=== PATIENT | female | born 1955 | race Caucasian/White ===

== ENCOUNTER → 2018-07-31 07:48 | Outpatient (CLI) | payer OTHER, SELFPAY ==
[2018-07-31 09:09] LABS: Add Manual Diff / Slide Review NO; Basophils Absolute Auto 0 /uL (0-100); Basophils Percent Auto 0.4 % (0-2); Eosinophils Absolute Auto 100 /uL (0-450); Eosinophils Percent Auto 1.7 % (2-4); Hematocrit 40.7 % (36-46); Hemoglobin 13.3 g/dL (12.0-16.0); Lymphocytes Absolute Auto 1400 /uL (1100-4500); Mean Corpuscular HGB Conc 32.7 % (30-36); Mean Corpuscular Hemoglobin 27.9 PG (26-34); Mean Corpuscular Volume 85.4 fL (80-100); Monocytes Absolute Auto 500 /uL (0-900); Monocytes Percent Auto 10.6 % (3-14); Neutrophils Absolute Auto 2500 /uL (1500-7000); Neutrophils Percent Auto 56.3 % (50-75); Platelet Count 213 X10^3/uL (150-400); Red Blood Cell Count 4.77 X10^6/uL (4.0-5.2); White Blood Cell Count 4.5 X10^3/uL (4.5-11.0)
[2018-07-31 09:20] LABS: Alanine Aminotransferase 33 IU/L (9-52); Albumin 4.1 g/dL (3.5-5.0); Albumin Globulin Ratio 1.6 (1.0-2.8); Alkaline Phosphatase 56 U/L (38-126); Aspartate Aminotransferase 22 IU/L (14-36); BUN Creatinine Ratio 22.5 (6-22); Bilirubin Total 0.3 mg/dL (0.2-1.3); Blood Urea Nitrogen 18 mg/dL (7-17); Calcium 9.1 mg/dL (8.4-10.2); Carbon Dioxide 28 mmol/L (22-32); Chloride 103 mmol/L (98-107); Cholesterol 177 mg/dL (140-199); Estimated Glomerular Filt Rate > 60.0 mL/min (>60); Globulin 2.5 g/dL (1.7-4.1); Glucose 93 mg/dL (80-110); HDL Cholesterol 65 mg/dL (40-60); HEMOLYSIS < 15 (0-50); LDL Cholesterol Calculated 95 mg/dL (<100); Potassium 4.6 mmol/L (3.4-5.1); Sodium 139 mmol/L (137-145); Total Protein 6.6 g/dL (6.3-8.2); Triglycerides 85 mg/dL (35-150)
[2018-07-31 09:53] LABS: Thyroid Stimulating Hormone 1.21 uIU/mL (0.47-4.68)
== END ==
PROVIDERS: PCP Student in an Organized Health Care Education/Training Program
DX: Z13.228 Encounter for screening for other metabolic disorders (principal); Z13.220 Encounter for screening for lipoid disorders; Z13.0 Encounter for screening for diseases of the blood and blood-forming organs and certain disorders involving the immune mechanism; Z13.29 Encounter for screening for other suspected endocrine disorder
CPT/HCPCS: 36415; 80053; 80061; 84443; 85025

== ENCOUNTER → 2018-08-21 12:04 | Outpatient (CLI) | payer OTHER, SELFPAY ==
--- NOTE | 2018-08-21 12:05 | DI.MG.S_ITS ---
BILATERAL DIGITAL SCREENING MAMMOGRAM 3D/2D WITH CAD: 08/21/2018 CLINICAL: Routine screening. Comparison is made to exams dated: 07/29/2017 mammogram, 07/10/2016 mammogram, and 06/21/2015 mammogram - [facility]. The tissue of both breasts is heterogeneously dense. This may lower the sensitivity of mammography. Current study was also evaluated with a Computer Aided Detection (CAD) system. There are benign calcifications in both breasts. No significant masses, calcifications, or other findings are seen in either breast. There has been no significant interval change. IMPRESSION: There is no mammographic evidence of malignancy. A 1 year screening mammogram is recommended. This exam was interpreted at Station ID: [id number]. NOTE: For mammograms, a report in lay terms will be sent to the patient. Approximately 15% of breast malignancies will not be visualized mammographically. In the management of a palpable breast mass, a negative mammogram must not discourage biopsy of a clinically suspicious lesion. Electronically Signed By: Garo black/zackary:08/23/2018 12:38:43 copy to: León Powell letter sent: Normal Exam ACR BI-RADS Category 2: Benign Finding(s) 3342F
== END ==
PROVIDERS: PCP Student in an Organized Health Care Education/Training Program
DX: Z12.31 Encounter for screening mammogram for malignant neoplasm of breast (principal)
CPT/HCPCS: 77063; 77067

== ENCOUNTER → 2019-11-07 15:11 | Outpatient (CLI) | payer OTHER, SELFPAY ==
--- NOTE | 2019-11-07 | DI.MG.S_ITS ---
BILATERAL DIGITAL SCREENING MAMMOGRAM 3D/2D WITH CAD: 11/07/2019 CLINICAL: Routine screening. Comparison is made to exams dated: 08/21/2018 mammogram, 07/29/2017 mammogram, 07/10/2016 mammogram, 06/21/2015 mammogram, and 06/20/2014 mammogram - [facility]. The tissue of both breasts is heterogeneously dense. This may lower the sensitivity of mammography. Current study was also evaluated with a Computer Aided Detection (CAD) system. There are grouped fine calcifications in the left breast at 9 o'clock posterior depth. These are more prominent. There maybe layering of this calcification on the MLO. No other significant masses, calcifications, or other findings are seen in either breast. IMPRESSION: INCOMPLETE: NEEDS ADDITIONAL IMAGING EVALUATION The grouped fine calcifications in the left breast are indeterminate. Additional views are recommended. This exam was interpreted at Station ID: [id number]. NOTE: For mammograms, a report in lay terms will be sent to the patient. Approximately 15% of breast malignancies will not be visualized mammographically. In the management of a palpable breast mass, a negative mammogram must not discourage biopsy of a clinically suspicious lesion. Electronically Signed By: Fabien Cleveland M.D. slc/:11/07/2019 16:47:41 letter sent: Additional Imaging Needed ACR BI-RADS Category 0: Incomplete 3340F
== END ==
PROVIDERS: PCP Family Medicine; Referring Provider Family Medicine; Visit Provider Family Medicine
DX: Z12.31 Encounter for screening mammogram for malignant neoplasm of breast (principal)
CPT/HCPCS: 77063; 77067

== ENCOUNTER → 2019-11-23 13:42 | Outpatient (CLI) | payer OTHER, SELFPAY ==
--- NOTE | 2019-11-23 13:43 | DI.MG.S_ITS ---
UNILATERAL LEFT DIGITAL DIAGNOSTIC MAMMOGRAM 3D/2D WITH ADDITIONAL VIEWS: 11/23/2019 CLINICAL: Additional evaluation requested from prior study. Comparison is made to exams dated: 11/07/2019 mammogram, 08/21/2018 mammogram, and 07/29/2017 mammogram - [facility]. The tissue of left breast is heterogeneously dense. This may lower the sensitivity of mammography. There are stable benign grouped fine calcifications in the left breast at 9 o'clock posterior depth. These appear unchanged from the 2018 mammogram. No other significant masses or calcifications are seen in the breast. IMPRESSION: There is no mammographic evidence of malignancy. A 1 year screening mammogram is recommended. This exam was interpreted at Station ID: [id number]. NOTE: For mammograms, a report in lay terms will be sent to the patient. Approximately 15% of breast malignancies will not be visualized mammographically. In the management of a palpable breast mass, a negative mammogram must not discourage biopsy of a clinically suspicious lesion. Electronically Signed By: Sweta trujillo/:11/23/2019 14:23:22 letter sent: Normal Exam ACR BI-RADS Category 2: Benign Finding(s) 3342F
== END ==
PROVIDERS: PCP Family Medicine; Referring Provider Family Medicine; Visit Provider Family Medicine
DX: R92.8 Other abnormal and inconclusive findings on diagnostic imaging of breast (principal); R92.1 Mammographic calcification found on diagnostic imaging of breast
CPT/HCPCS: 77065; G0279

== ENCOUNTER → 2020-09-25 06:59 | Outpatient (CLI) | payer OTHER, SELFPAY ==
[2020-09-25 08:12] LABS: Add Manual Diff / Slide Review NO; Basophils Absolute Auto 0 /uL (0-100); Basophils Percent Auto 0.6 % (0-2); Eosinophils Absolute Auto 200 /uL (0-450); Eosinophils Percent Auto 4.4 % (2-4); Hemoglobin 12.9 g/dL (12.0-16.0); Lymphocytes Absolute Auto 1600 /uL (1100-4500); Lymphocytes Percent Auto 35.8 % (25-40); Mean Corpuscular HGB Conc 33.1 % (30-36); Mean Corpuscular Hemoglobin 28.5 PG (26-34); Mean Corpuscular Volume 85.9 fL (80-100); Monocytes Absolute Auto 600 /uL (0-900); Monocytes Percent Auto 13.3 % (3-14); Neutrophils Absolute Auto 2100 /uL (1500-7000); Neutrophils Percent Auto 45.9 % (50-75); Platelet Count 212 X10^3/uL (150-400); Red Blood Cell Count 4.54 X10^6/uL (4.0-5.2); White Blood Cell Count 4.5 X10^3/uL (4.5-11.0)
[2020-09-25 08:30] LABS: Alanine Aminotransferase 22 IU/L (<35); Albumin 3.9 g/dL (3.5-5.0); Albumin Globulin Ratio 1.6 (1.0-2.8); Alkaline Phosphatase 58 U/L (38-126); Aspartate Aminotransferase 25 IU/L (14-36); Bilirubin Total 0.3 mg/dL (0.2-1.3); Blood Urea Nitrogen 20 mg/dL (7-17); Calcium 9.1 mg/dL (8.4-10.2); Carbon Dioxide 31 mmol/L (22-32); Chloride 102 mmol/L (98-107); Cholesterol 215 mg/dL (140-199); Estimated Glomerular Filt Rate > 60.0 mL/min (>60); Globulin 2.5 g/dL (1.7-4.1); Glucose 105 mg/dL (80-110); HDL Cholesterol 60 mg/dL (40-60); HEMOLYSIS < 15 (0-50); LDL Cholesterol Calculated 139 mg/dL (<100); Potassium 4.8 mmol/L (3.4-5.1); Sodium 138 mmol/L (137-145); Total Protein 6.4 g/dL (6.3-8.2); Triglycerides 81 mg/dL (35-150)
[2020-09-25 08:54] LABS: TSH w/ Reflex to FT4 2.26 uIU/mL (0.47-4.68)
== END ==
PROVIDERS: PCP Family Medicine; Referring Provider Family Medicine; Visit Provider Family Medicine
DX: E03.9 Hypothyroidism, unspecified (principal); M85.80 Other specified disorders of bone density and structure, unspecified site; N95.0 Postmenopausal bleeding
CPT/HCPCS: 36415; 80053; 80061; 84443; 85025

== ENCOUNTER → 2020-12-05 15:26 | Outpatient (CLI) | payer OTHER, SELFPAY ==
--- NOTE | 2020-12-05 15:27 | DI.MG.S_ITS ---
BILATERAL DIGITAL SCREENING MAMMOGRAM 3D/2D WITH CAD: 12/05/2020 CLINICAL: Routine screening. Comparison is made to exams dated: 11/23/2019 mammogram, 11/07/2019 mammogram, 08/21/2018 mammogram, and 07/29/2017 mammogram - [facility]. The tissue of both breasts is heterogeneously dense. This may lower the sensitivity of mammography. Current study was also evaluated with a Computer Aided Detection (CAD) system. No significant masses, calcifications, or other findings are seen in either breast. There has been no significant interval change. IMPRESSION: NEGATIVE There is no mammographic evidence of malignancy. A 1 year screening mammogram is recommended. This exam was interpreted at Station ID: [id number]. NOTE: For mammograms, a report in lay terms will be sent to the patient. Approximately 15% of breast malignancies will not be visualized mammographically. In the management of a palpable breast mass, a negative mammogram must not discourage biopsy of a clinically suspicious lesion. Electronically Signed By: Eris choi/zackary:12/05/2020 15:50:39 letter sent: Normal Exam ACR BI-RADS Category 1: Negative 3341F
== END ==
PROVIDERS: PCP Family Medicine; Referring Provider Obstetrics & Gynecology; Visit Provider Obstetrics & Gynecology
DX: Z12.31 Encounter for screening mammogram for malignant neoplasm of breast (principal)
CPT/HCPCS: 77063; 77067

== ENCOUNTER → 2021-01-23 06:58 | Outpatient (CLI) | payer OTHER, SELFPAY ==
[2021-01-23 08:40] LABS: BUN Creatinine Ratio 26.9 (6-22); Blood Urea Nitrogen 21 mg/dL (7-17); Calcium 9.3 mg/dL (8.4-10.2); Carbon Dioxide 28 mmol/L (22-32); Chloride 105 mmol/L (98-107); Cholesterol 228 mg/dL (140-199); Estimated Glomerular Filt Rate > 60.0 mL/min (>60); Glucose 100 mg/dL (80-110); HDL Cholesterol 62 mg/dL (40-60); HEMOLYSIS < 15 (0-50); LDL Cholesterol Calculated 151 mg/dL (<100); Potassium 4.4 mmol/L (3.4-5.1); Sodium 139 mmol/L (137-145); Triglycerides 74 mg/dL (35-150)
[2021-01-23 09:09] LABS: TSH w/ Reflex to FT4 0.47 uIU/mL (0.47-4.68)
== END ==
PROVIDERS: PCP Family Medicine; Referring Provider Family Medicine; Visit Provider Family Medicine
DX: E03.9 Hypothyroidism, unspecified (principal); E78.5 Hyperlipidemia, unspecified
CPT/HCPCS: 36415; 80048; 80061; 84443

== ENCOUNTER → 2021-03-08 07:41 | Outpatient (CLI) | payer OTHER, SELFPAY ==
[2021-03-08 08:34] LABS: Alanine Aminotransferase 26 IU/L (<35); Albumin 4.2 g/dL (3.5-5.0); Albumin Globulin Ratio 1.6 (1.0-2.8); Alkaline Phosphatase 61 U/L (38-126); Aspartate Aminotransferase 28 IU/L (14-36); BUN Creatinine Ratio 24.3 (6-22); Bilirubin Total 0.5 mg/dL (0.2-1.3); Blood Urea Nitrogen 17 mg/dL (7-17); Calcium 9.4 mg/dL (8.4-10.2); Carbon Dioxide 30 mmol/L (22-32); Chloride 104 mmol/L (98-107); Cholesterol 152 mg/dL (140-199); Estimated Glomerular Filt Rate > 60.0 mL/min (>60); Globulin 2.6 g/dL (1.7-4.1); Glucose 90 mg/dL (80-110); HDL Cholesterol 81 mg/dL (40-60); HEMOLYSIS < 15 (0-50); LDL Cholesterol Calculated 58 mg/dL (<100); Potassium 3.9 mmol/L (3.4-5.1); Sodium 141 mmol/L (137-145); Total Protein 6.8 g/dL (6.3-8.2); Triglycerides 64 mg/dL (35-150)
== END ==
PROVIDERS: PCP Family Medicine; Referring Provider Family Medicine; Visit Provider Family Medicine
DX: E78.00 Pure hypercholesterolemia, unspecified (principal)
CPT/HCPCS: 36415; 80053; 80061

== ENCOUNTER → 2021-05-14 12:40 | Outpatient (CLI) | payer OTHER, SELFPAY ==
[2021-05-14 14:08] LABS: TSH w/ Reflex to FT4 1.75 uIU/mL (0.47-4.68)
== END ==
PROVIDERS: PCP Family Medicine; Referring Provider Family Medicine; Visit Provider Family Medicine
DX: E03.9 Hypothyroidism, unspecified (principal)
CPT/HCPCS: 36415; 84443

== ENCOUNTER → 2021-12-10 12:54 | Outpatient (CLI) | payer OTHER, SELFPAY ==
--- NOTE | 2021-12-10 12:55 | DI.MG.S_ITS ---
BILATERAL DIGITAL SCREENING MAMMOGRAM 3D/2D WITH CAD: 12/10/2021 CLINICAL: Routine screening. Comparison is made to exams dated: 12/05/2020 mammogram, 11/07/2019 mammogram, 08/21/2018 mammogram, and 07/29/2017 mammogram - [facility]. The tissue of both breasts is heterogeneously dense. This may lower the sensitivity of mammography. Current study was also evaluated with a Computer Aided Detection (CAD) system. There are benign calcifications in both breasts. No significant masses, calcifications, or other findings are seen in either breast. There has been no significant interval change. IMPRESSION: BENIGN There is no mammographic evidence of malignancy. A 1 year screening mammogram is recommended. Based on the Tyrer Cuzick model (a risk assessment model) the patient's lifetime risk is 11.2% and her 10 year risk is 5.2%. According to the ACR, ACS, and NCCN guidelines, an annual breast MRI exam along with mammogram is recommended if the patient's lifetime risk is 20% or greater. This exam was interpreted at Station ID: [id number]. NOTE: For mammograms, a report in lay terms will be sent to the patient. Approximately 15% of breast malignancies will not be visualized mammographically. In the management of a palpable breast mass, a negative mammogram must not discourage biopsy of a clinically suspicious lesion. Electronically Signed By: Fabien lindquist/zackary:12/10/2021 17:42:55 letter sent: Normal Exam ACR BI-RADS Category 2: Benign Finding(s) 3342F
== END ==
PROVIDERS: Referring Provider Obstetrics & Gynecology; Visit Provider Obstetrics & Gynecology
DX: Z12.31 Encounter for screening mammogram for malignant neoplasm of breast (principal)
CPT/HCPCS: 77063; 77067

== ENCOUNTER → 2022-05-13 07:00 | Outpatient (CLI) | payer MEDICARE, OTHER, SELFPAY ==
[2022-05-13 08:05] LABS: Hematocrit 37.5 % (36-46); Hemoglobin 12.5 g/dL (12.0-16.0); Mean Corpuscular HGB Conc 33.4 % (30-36); Mean Corpuscular Hemoglobin 28.5 PG (26-34); Mean Corpuscular Volume 85.2 fL (80-100); Platelet Count 217 X10^3/uL (150-400); Red Cell Distribution Width 13.5 % (11.6-14.8); White Blood Cell Count 5.5 X10^3/uL (4.5-11.0)
[2022-05-13 08:40] LABS: Cholesterol 138 mg/dL (140-199); HDL Cholesterol 58 mg/dL (40-60); LDL Cholesterol Calculated 66 mg/dL (<100); Triglycerides 69 mg/dL (35-150)
[2022-05-13 08:53] LABS: Vitamin D 25 Hydroxy (D3) 54.3 ng/mL (30.0-100.0)
[2022-05-13 09:23] LABS: Thyroid Stimulating Hormone 1.67 uIU/mL (0.47-4.68)
[2022-05-13 17:59] LABS: Free T3, Triiodothyronine Free 3.17 pg/mL (2.77-5.27); Free T4, Direct Thyroxine 1.17 ng/dL (0.78-2.19)
[2022-05-14 14:49] LABS: Fecal Immunochemical Test Negative (Negative)
== END ==
PROVIDERS: PCP Family Medicine; Referring Provider Family Medicine; Visit Provider Family Medicine
DX: E03.9 Hypothyroidism, unspecified (principal); E55.9 Vitamin D deficiency, unspecified; E78.5 Hyperlipidemia, unspecified; N95.0 Postmenopausal bleeding; Z12.11 Encounter for screening for malignant neoplasm of colon; Z80.0 Family history of malignant neoplasm of digestive organs
CPT/HCPCS: 36415; 80061; 82274; 82306; 84439; 84443; 84481; 85027

== ENCOUNTER → 2022-12-11 08:14 | Outpatient (CLI) | payer MEDICARE, OTHER, SELFPAY ==
--- NOTE | 2022-12-11 | DI.MG.S_ITS ---
BILATERAL DIGITAL SCREENING MAMMOGRAM 3D/2D WITH CAD: 12/11/2022 CLINICAL: Routine screening. Comparison is made to exams dated: 12/10/2021 mammogram, 12/05/2020 mammogram, and 11/07/2019 mammogram - [facility]. Both breasts are heterogeneously dense, which may obscure small masses (category c / 51-75% glandular tissue). Current study was also evaluated with a Computer Aided Detection (CAD) system. There are benign calcifications in both breasts. No significant masses, calcifications, or other findings are seen in either breast. There has been no significant interval change. IMPRESSION: BENIGN There is no mammographic evidence of malignancy. A 1 year screening mammogram is recommended. Based on the Tyrer Cuzick model (a risk assessment model) the patient's lifetime risk is 10.8% and her 10 year risk is 5.2%. According to the ACR, ACS, and NCCN guidelines, an annual breast MRI exam along with mammogram is recommended if the patient's lifetime risk is 20% or greater. This exam was interpreted at Station ID: [id number]. NOTE: For mammograms, a report in lay terms will be sent to the patient. Approximately 15% of breast malignancies will not be visualized mammographically. In the management of a palpable breast mass, a negative mammogram must not discourage biopsy of a clinically suspicious lesion. Electronically Signed By: Ben garsia/zackary:12/11/2022 08:57:34 letter sent: Normal Exam ACR BI-RADS Category 2: Benign Finding(s) 3342F
== END ==
PROVIDERS: PCP Family Medicine; Referring Provider Family Medicine; Visit Provider Family Medicine
DX: Z12.31 Encounter for screening mammogram for malignant neoplasm of breast (principal)
CPT/HCPCS: 77063; 77067

== ENCOUNTER → 2023-04-10 14:45 | Outpatient (CLI) | payer MEDICARE, OTHER, SELFPAY ==
--- NOTE | 2023-04-10 14:46 | DI.US.S_ITS ---
PROCEDURE: US PELVIC COMPLETE INDICATIONS: POST MENOPAUSAL SPOTTING TECHNIQUE: Real-time scanning was performed of the pelvic organs, with image documentation. Additional endovaginal scanning was necessary due to incomplete visualization of the adnexal and endometrial structures by transabdominal scanning. COMPARISON: [facility], US, US PELVIC COMPLETE, 12/05/2021, 16:43. FINDINGS: Uterus: Uterus is anteverted and normal in size at 5.1 x 2.1 x 3.8 cm. The myometrium is homogeneous. The endometrium measures 9.1 mm combined thickness. No vascularity within the endometrium. Ovaries: The right ovary measures 1.1 x 1.6 x 1.0 cm, with a calculated ovarian volume of 0.9 cc. The left ovary is not visualized. A solitary 0.8 cm follicle is noted within the right ovary. No adnexal masses are seen. Other: No pathologic free abdominal or pelvic fluid. IMPRESSION: 1. The endometrium is thickened in a postmenopausal patient. Endometrial biopsy is recommended to exclude hypertrophy or neoplasm. We strive to produce accurate, complete, and clear reports of imaging services. To assist us in improving patient care, this report was composed using standard report templates and voice recognition software. Therefore, it may contain abnormal punctuation, insertions and/or omissions. Occasional wrong-word or sound-alike substitutions may occur. Though we review the report and make efforts to correct it, we do recommend that the report be read carefully in proper context to recognize any text inaccuracies. Dictated by: Sweta Chaves M.D. on 04/10/2023 at 15:58 Approved by: Sweta Chaves M.D. on 04/10/2023 at 16:00
== END ==
PROVIDERS: PCP Family Medicine; Referring Provider Family Medicine; Visit Provider Family Medicine
DX: N95.0 Postmenopausal bleeding (principal); R93.89 Abnormal findings on diagnostic imaging of other specified body structures
CPT/HCPCS: 76830; 76856

== ENCOUNTER → 2023-04-11 07:51 | Outpatient (CLI) | payer MEDICARE, OTHER, SELFPAY ==
[2023-04-11 09:00] LABS: Add Manual Diff / Slide Review NO; Basophils Absolute Auto 0 /uL (0-100); Basophils Percent Auto 0.5 % (0-2); Eosinophils Absolute Auto 200 /uL (0-450); Eosinophils Percent Auto 4.5 % (2-4); Hematocrit 37.4 % (36-46); Hemoglobin 12.5 g/dL (12.0-16.0); Lymphocytes Absolute Auto 1300 /uL (1100-4500); Mean Corpuscular HGB Conc 33.4 % (30-36); Mean Corpuscular Hemoglobin 28.5 PG (26-34); Mean Corpuscular Volume 85.5 fL (80-100); Monocytes Absolute Auto 600 /uL (0-900); Monocytes Percent Auto 13.8 % (3-14); Neutrophils Absolute Auto 2200 /uL (1500-7000); Neutrophils Percent Auto 50.2 % (50-75); Platelet Count 213 X10^3/uL (150-400); Red Blood Cell Count 4.37 X10^6/uL (4.0-5.2); Red Cell Distribution Width 13.2 % (11.6-14.8); White Blood Cell Count 4.3 X10^3/uL (4.5-11.0)
[2023-04-11 09:20] LABS: Alanine Aminotransferase 21 IU/L (<35); Albumin 3.9 g/dL (3.5-5.0); Albumin Globulin Ratio 1.4 (1.0-2.8); Alkaline Phosphatase 55 U/L (38-126); Aspartate Aminotransferase 26 IU/L (14-36); Bilirubin Total 0.3 mg/dL (0.2-1.3); Blood Urea Nitrogen 20 mg/dL (7-17); Calcium 9.2 mg/dL (8.4-10.2); Carbon Dioxide 28 mmol/L (22-32); Chloride 105 mmol/L (98-107); Cholesterol 138 mg/dL (140-199); Estimated Glomerular Filt Rate > 60 mL/min (>60); Globulin 2.8 g/dL (1.7-4.1); Glucose 98 mg/dL (80-110); HDL Cholesterol 59 mg/dL (40-60); HEMOLYSIS < 15 (0-50); LDL Cholesterol Calculated 69 mg/dL (<100); Sodium 137 mmol/L (137-145); Total Protein 6.7 g/dL (6.3-8.2); Triglycerides 50 mg/dL (35-150)
[2023-04-11 09:24] LABS: High Sensitivity CRP - Cardiac 3.6 mg/L (1.0-3.0)
[2023-04-11 09:52] LABS: TSH w/ Reflex to FT4 0.76 uIU/mL (0.47-4.68)
== END ==
PROVIDERS: PCP Family Medicine; Referring Provider Family Medicine; Visit Provider Family Medicine
DX: N95.0 Postmenopausal bleeding (principal); E78.5 Hyperlipidemia, unspecified; Z80.49 Family history of malignant neoplasm of other genital organs; E03.9 Hypothyroidism, unspecified
CPT/HCPCS: 36415; 80053; 80061; 84443; 85025; 86140

== ENCOUNTER 2023-06-29 11:14 | Day surgery (SDC) | payer MEDICARE, OTHER, SELFPAY ==
[2023-05-26 13:47] VITALS: BMI 25.0
[2023-06-29] VITALS (7 sets, daily range): BP systolic 120–141; BP diastolic 62–83; PULSE 58–83; RESP 10–17; TEMP 36.5–36.7; O2SAT 98–99; BMI 24.3
--- NOTE | 2023-06-29 | PATH_ITS ---
[facility] Accession Number: [id number] No. of containers..01 Tissue . 01 Material submitted: . endometrium - UTERINE CURETTAGE . 01 Diagnosis: Uterine Curettage: Benign (non-atypical) endometrial glandular hyperplasia (hyperplasia without atypia). Negative for endometrial intraepithelial neoplasia (EIN). MRV 07/02/2023 1700 Local . 01 Comment: As part of routine quality assurance qa lab analyst, this case was also reviewed by Drs. Bentley and Cayetano, who agree with the interpretation. . 01 Electronically signed: . Seda France MD, Pathologist NPI- [id number] . 01 Gross description: . UTERINE CURETTAGE: Received in formalin are minute fragments of mucoid and hemorrhagic material measuring 2.0 x 2.0 x 0.2 cm in aggregate. Submitted in toto in 1 cassette. /ALEXEI 06/30/2023 1934 Local . 01 Pathologist provided ICD-10: N85.01 . 01 CPT . 333053 [facility] [address] [place] [id number] MD Palmer Colbert MD Phone: [phone]
--- NOTE | 2023-06-29 11:58 | P.HPOB_ITS ---
History of Present Illness History of Present Illness Narrative: Lisa Sprague is a 68 year old female with postmenopausal bleeding, admitted for same day surgery to have diagnostic hysteroscopy with D&C performed. She has no new concerns or health changes since her prior visit in April 2023. Prior HPI: 68-year-old female with recurrent postmenopausal bleeding here for consultation. She was seen in 2020 for postmenopausal bleeding, and had a negative endometrial biopsy done. She has since continued to have spotting off and on, usually brown in color. She is not taking any hormone replacement therapy at this time. She previously was on unopposed estrogen prior to having postmenopausal bleeding. She tried Estring in the past, but did not like having something inside the vagina. She continues to have hot flashes daily, and takes escitalopram. She has a sister who had uterine cancer, and her mother of colon cancer in her 50s. [facility] Medical History History of COVID-19 (~05/18/23) Hyperlipidemia Osteopenia Family history of colon cancer Hormone replacement therapy (HRT) Family history of malignant neoplasm of endometrium Postmenopausal bleeding (~03/2023) Squamous cell carcinoma Basal cell carcinoma Infertility Thyroid nodule Hypothyroidism Skin cancer Acquired hypothyroidism (09/03/15) Surgical History Anesthesia Status post colonoscopy Family History Father No problems noted. Grandfather No problems noted. Grandmother No problems noted. Mother No problems noted. Grandfather No problems noted. Grandmother No problems noted. Sister No problems noted. Sister Leukemia Family/Other No problems noted. Social History marital status: number of children: 1 household members: spouse lives independently: Yes housing: house pets and animals: Yes education level: master's degree occupational status: employed Smoking Status: Never smoker alcohol intake: current substance use type: does not use Meds Home Medications and Allergies Home Medications Medication Instructions Recorded Confirmed Type cholecalciferol (vitamin D3) 50 2,000 unit PO DAILY 11/13/17 06/29/23 History mcg (2,000 unit) capsule levothyroxine 88 mcg tablet 88 mcg PO DAILY #90 tabs 04/28/23 06/29/23 Rx escitalopram oxalate 5 mg tablet 5 mg PO DAILY #90 tabs 05/11/23 06/29/23 Rx rosuvastatin 5 mg tablet 5 mg PO .Every Other Day 05/18/23 06/29/23 History Allergies Allergy/AdvReac Type Severity Reaction Status Date / Time No Known Drug Allergies Allergy Verified 06/29/23 11:32 Review of Systems Review of Systems ROS: Yes All systems reviewed with the patient and are negative except as otherwise documented Exam Vital Signs (past 8 hours): vitals reviewed, within normal parameters Const General: cooperative, healthy appearing and comfortable Resp Effort & Inspection: normal respiratory effort and able to speak in complete sentences Cardio Rate: regular rate Rhythm: regular rhythm Skin General: no rashes or lesions noted Extrem General: normal to inspection Psych Appearance: grossly normal Mental Status: mental status grossly normal Objective Imaging US - abdomen: Radiologist's impression: PROCEDURE: US PELVIC COMPLETE INDICATIONS: POST MENOPAUSAL SPOTTING TECHNIQUE: Real-time scanning was performed of the pelvic organs, with image documentation. Additional endovaginal scanning was necessary due to incomplete visualization of the adnexal and endometrial structures by transabdominal scanning. COMPARISON: [facility], US, US PELVIC COMPLETE, 12/05/2021, 16:43. FINDINGS: Uterus: Uterus is anteverted and normal in size at 5.1 x 2.1 x 3.8 cm. The myometrium is homogeneous. The endometrium measures 9.1 mm combined thickness. No vascularity within the endometrium. Ovaries: The right ovary measures 1.1 x 1.6 x 1.0 cm, with a calculated ovarian volume of 0.9 cc. The left ovary is not visualized. A solitary 0.8 cm follicle is noted within the right ovary. No adnexal masses are seen. Other: No pathologic free abdominal or pelvic fluid. IMPRESSION: 1. The endometrium is thickened in a postmenopausal patient. Endometrial biopsy is recommended to exclude hypertrophy or neoplasm. We strive to produce accurate, complete, and clear reports of imaging services. To assist us in improving patient care, this report was composed using standard report templates and voice recognition software. Therefore, it may contain abnormal punctuation, insertions and/or omissions. Occasional wrong-word or sound-alike substitutions may occur. Though we review the report and make efforts to correct it, we do recommend that the report be read carefully in proper context to recognize any text inaccuracies. Dictated by: Sweta Chaves M.D. on 04/10/2023 at 15:58 Approved by: Sweta Chaves M.D. on 04/10/2023 at 16:00 Assessment & Plan Assessment and plan (1) Postmenopausal bleeding: Problem details: was using 0.5 mg topical estrogen patch without progesterone, switched to vaginal, eval'ed by PURCHASING AND FISCAL CLERK and had EMB, still having scant bleed Status: Chronic Plan 68yo F here for planned diagnostic hysteroscopy with D&C for postmenopausal bleeding. Risk, benefit, alternatives to procedure reviewed, and pt desires to proceed. Surgical consent signed today. -no preop abx indicated -VTE risk low, SCDs intraoperatively -plan for same day surgery Surgery consent We discussed the risks/benefits/alternatives to the proposed procedure, to include: -risk of bleeding, requiring medications, blood products, or other procedures as indicated -risk of infection, requiring prolonged hospital stay or other procedures -risk of injury to other structures, including bowel, bladder, blood vessels, nerves, etc. which may also require additional procedures -risk of adverse reaction to anesthesia or medications -risk of venous thromboembolism and associated sequelae -risk of rare complications such as cardiac arrest, or extremely rarely, Patient is aware of the risks, and desires to proceed with planned surgical procedure. Time Spent With Patient Time with patient: less than 30 minutes
--- NOTE | 2023-06-29 13:13 | SUR.OPER ---
Lithotomy on padded OR bed, head on pillow, arms secured on padded arm boards at <90 degrees abduction. Legs secured in padded yellow fins stirrups.
--- NOTE | 2023-06-29 13:25 | P.OP_ITS ---
Operative Date/Time/Diagnoses Date of procedure: 06/29/23 Time of procedure: 01:00 Pre-op diagnosis: Recurrent postmenopausal bleeding Post-op diagnosis: same Procedure & Clinicians Procedure: Diagnostic hysteroscopy Dilation and uterine curettage Same procedure as scheduled: Yes Indications: 68yo F with recurrent postmenopausal bleeding, desiring to proceed with diagnostic hysteroscopy with dilation and curettage. Surgeon: Daja Daniel Click Yes if Unassisted: Yes Anesthesia Type: General Operative Notes Findings: Atrophic endometrial lining Specimen(s): other (uterine curettage) Estimated Blood Loss (mL): 5 Blood products transfused: none Procedure in detail: The risks, benefits, indications and alternatives of the procedure were reviewed with the patient and informed consent was obtained. The pt was taken to the operating room where general anesthesia with LMA was obtained without difficulty. The pt was then placed in the low lithotomy position using gel- padded Howard stirrups. Sequential compression devices were placed bilaterally for VTE prophylaxis. The pt was then prepped and draped in the sterile fashion. A sterile speculum was placed in the patient?s vagina and the cervix was visualized. A single tooth tenaculum was used to grasp the anterior lip of the cervix. The cervix was then gently, dilated to a size 8 Hegar dilator. The operative hysteroscope was first primed and pressure set. The operative hysteroscope was then advanced through the endocervical canal under direct visualization. The uterus was distended with warm saline, and notable for the above findings. The Myosure Reach was then inserted into the operative hysteroscope. Global endometrial sampling was then performed. The operative hysteroscope was then removed under direct visualization. Tissue obtained was sent to pathology for review. The single tooth tenaculum was removed from the anterior lip of the cervix. The tenaculum site was noted to be hemostatic after direct pressure was applied. All instruments were then removed from the patient?s vagina. Hysteroscopic fluid deficit was 120cc of normal saline. The patient tolerated the procedure well. At the completion of the case the sponge and needle counts were correct x 2. The patient was taken to the PACU in stable condition. Complications: none Post-operative Condition: stable Disposition: PACU Plan for aftercare: Discharge to home once patient is meeting all discharge criteria.
== END 2023-06-29 14:26 | disposition home or self-care (01) ==
PROVIDERS: PCP Family Medicine; Referring Provider Student in an Organized Health Care Education/Training Program; Visit Provider Student in an Organized Health Care Education/Training Program
PROC: 0UDB8ZZ Extraction of Endometrium, Via Natural or Artificial Opening Endoscopic (ICD-10-PCS; CPT 58558; principal; 2023-06-29 12:45)
DX: N95.0 Postmenopausal bleeding (principal); N85.01 Benign endometrial hyperplasia
CPT/HCPCS: 58558; J1885; J2250; J2405; J2704; J3010

== ENCOUNTER 2023-08-17 09:43 | Day surgery (SDC) | payer MEDICARE, OTHER, SELFPAY ==
[2023-08-13 15:10] VITALS: BMI 23.4
[2023-08-17] VITALS (11 sets, daily range): BP systolic 112–155; BP diastolic 63–90; PULSE 69–80; RESP 12–20; TEMP 36.3–37.2; O2SAT 94–99; BMI 24.1
--- NOTE | 2023-08-17 | PATH_ITS ---
[facility] Accession Number: [id number] No. of containers..01 Tissue . 01 Material submitted: . uterus - UTERUS, CERVIX, BILATERAL FALLOPIAN TUBES AND OVARIES . 01 Diagnosis: UTERUS, CERVIX, BILATERAL OVARIES, AND BILATERAL FALLOPIAN TUBES, HYSTERECTOMY AND BILATERAL SALPINGO-OOPHORECTOMY: Cervix with mild chronic inflammation; no dysplasia or malignancy. Endometrioid intraepithelial neoplasia (EIN). See comment. No diagnostic features of invasive malignancy. Complete cross section of bilateral fimbriated fallopian tube with benign paratubal cysts. Ovary with benign simple serous cyst, but otherwise no significant diagnostic alterations. MRV 08/24/2023 1041 Local . 01 Comment: The entire endometrium was examined. . 01 Electronically signed: . Shweta Bentley MD, Pathologist NPI- [id number] . 01 Gross description: . The specimen is received in formalin, labeled with the patient's name, , and uterus, cervix, bilateral fallopian tubes and ovaries, and consists of an intact uterus (33 grams, 6.0 cm from superior to inferior, 4.4 cm from medial to lateral, and 2.0 cm from anterior to posterior) with attached cervix (2.7 x 2.5 cm), left fallopian tube (5.2 x 0.5 cm), left ovary (1 gram, 2.2 x 0.8 x 0.7 cm), right fallopian tube (6.8 x 0.6 cm),and right ovary (1 gram, 1.8 x 1.0 x 0.7 cm). The ectocervix is bridges, smooth, and glistening with a patulous os measuring 0.5 cm in diameter. A purple suture is identified at the 9 o'clock position with no designation per the requisition. The anterior paracervical margin is inked blue while the posterior paracervical margin is inked black. . The serosa is congested and smooth with no pinpoint areas of hemorrhage or adhesion identified. The endocervical canal has bridges, herringbone mucosa and measures 1.1 cm in length. The endometrial cavity measures 1.5 cm from cornu to cornu, 2.7 cm in length, with bridges to brown, velvety endometrium that averages less than 0.1 cm thick. The myometrium is bridges and trabecular measuring up to 0.9 cm thick with no nodules or lesions identified. . The left fallopian tube has violaceous, smooth serosa with no cysts identified, and sectioning reveals an unremarkable stellate lumen. The left ovary has a bridges, cerebriform external surface, and sectioning reveals a physiologic cut surface with no lesions identified. . The right fallopian tube has violaceous, smooth serosa with multiple cystic structures measuring up to 0.3 cm in greatest dimension filled with cloudy serous fluid. Sectioning reveals an unremarkable stellate lumen. The right ovary has a bridges, cerebriform external surface, and sectioning reveals a thin, smooth-walled cystic structure measuring 0.8 cm in greatest dimension filled with bridges serous fluid. The remaining cut surface is physiologic and unremarkable. . Financial Services Manager sections are submitted as follows: A1: Anterior cervix. A2: Posterior cervix. A3: Anterior full thickness section. A4: Posterior full thickness section. A5: Serosa. A6: Left fallopian tube to include one-half of bisected fimbriae and cross sections. A7: Left ovary. A8: Right fallopian tube to include one-half of bisected fimbriae and cross sections. A9: Right ovary. ([id number]) . The remaining endometrium as full thickness sections are submitted as follows: A10-A12: Anterior endomyometrium. A13-A15: Posterior endomyometrium. ([id number]) /MRV 08/21/[address] [place] [address] . 01 Pathologist provided ICD-10: N85.02 . 01 CPT . 464028 Specimen Comment: A courtesy copy of this report has been sent to [facility] Pathology Performed at: [facility] [address] [place] [address] [address] [facility], [place], [place] [id number] MD Palmer Colbert MD Phone: [phone]
[2023-08-17] MEDS: LACTATED RINGERS 1,000 ML 21 ML IV (10:36)
[2023-08-17 10:37] LABS: Add Manual Diff / Slide Review NO; Basophils Absolute Auto 0 /uL (0-100); Basophils Percent Auto 0.6 % (0-2); Eosinophils Absolute Auto 100 /uL (0-450); Eosinophils Percent Auto 2.4 % (2-4); Hematocrit 39.8 % (36-46); Hemoglobin 13.2 g/dL (12.0-16.0); Lymphocytes Absolute Auto 1300 /uL (1100-4500); Lymphocytes Percent Auto 24.2 % (25-40); Mean Corpuscular HGB Conc 33.2 % (30-36); Mean Corpuscular Hemoglobin 28.1 PG (26-34); Mean Corpuscular Volume 84.6 fL (80-100); Monocytes Absolute Auto 600 /uL (0-900); Monocytes Percent Auto 11.3 % (3-14); Neutrophils Absolute Auto 3400 /uL (1500-7000); Neutrophils Percent Auto 61.5 % (50-75); Platelet Count 201 X10^3/uL (150-400); Red Cell Distribution Width 13.6 % (11.6-14.8); White Blood Cell Count 5.5 X10^3/uL (4.5-11.0)
--- NOTE | 2023-08-17 11:53 | PM.PREOP ---
Pre-operative Note Interval Note History & Physical reviewed/Exam performed by Physician: Yes Changes to H&P: No H&P completed within 30 days and has changed as indicated here:: see H&P 08/13/23
[2023-08-17] MEDS: CEFAZOLIN 2 GM/100 ML PREMIX 100 ML IV (13:00)
--- NOTE | 2023-08-17 13:24 | SUR.OPER ---
Lithotomy on padded OR bed. [place] Pad Positioner under torso. Head on pillow, arms padded and tucked at sides. Legs secured in padded yellow fins stirrups.
[2023-08-17] MEDS: BUPIVACAINE 0.25% (PF) 30 ML, EPINEPHrine 0.15 MG INJ (13:36)
--- NOTE | 2023-08-17 14:44 | PM.OP.1 ---
Operative Date/Time/Diagnoses Date of procedure: 08/17/23 Time of procedure: 13:00 Pre-op diagnosis: Benign endometrial hyperplasia Postmenopausal bleeding Post-op diagnosis: same Procedure & Clinicians Procedure: Total laparoscopic hysterectomy Bilateral salpingo-oophorectomy Cystoscopy Same procedure as scheduled: Yes Indications: 68yo F with benign endometrial hyperplasia, who desires definite management. Surgeon: Daja Daniel Chief Engineer Research: Crystal Bernard Anesthesia Type: General Operative Notes Findings: Normal appearing uterus, bilateral fallopian tubes, and bilateral ovaries. Specimen(s): other (uterus, cervix, bilateral fallopian tubes, bilateral ovaries) Applied: catheter Estimated Blood Loss (mL): 50 Blood products transfused: none Procedure in detail: The risks, benefits, indications and alternatives of the procedure were reviewed with the patient and informed consent was obtained. The pt was taken to the operating room where general anesthesia was obtained without difficulty. The pt was then placed in the low lithotomy position using Howard Stirrups and arms were tucked with padding. Sequential compression devices were placed bilaterally for VTE prophylaxis. She was then prepped and draped in the sterile fashion and a Gr catheter was placed. A small V-care uterine manipulator was placed through the cervix into the uterus for uterine manipulation. Attention was then turned to the patient?s abdomen were a 5mm skin incision was made in the inferior aspect of the umbilicus after injecting 0.25% Marcaine. A 5mm trocar and sleeve were then carefully introduced into the peritoneal cavity under direct visualization at a 90-degree angle while tenting up the abdominal wall. Intra-peritoneal placement was confirmed under direct visualization with the laparoscope with entry pressure <5 mmHg. A pneumoperitoneum was obtained with several liters of CO2 gas, maximum pressure of 15 mmHg. Upon entry into the peritoneal cavity, structures immediately below the incision were inspected and found to be free of injury. A survey of the patient's abdomen and pelvis was notable for the above findings. Three additional 5mm port sites, one in the right lateral side and two in the left lateral side, were placed under direct laparoscopic guidance. The Powerseal device was used to clamp, cut, and ligate the left infundibulopelvic ligament. The left fallopian tube was then from the mesosalpinx. The left utero-ovarian and round ligaments were then clamped, cut, and ligated. The anterior broad ligament was then incised along the bladder reflection along the left side, and the bladder was dissected off the lower uterine segment until endopelvic fascia was visualized. The same procedure was then completed on the right side separate the right ovary, fallopian tube, and uterine attachments from the pelvic sidewall. The uterine arteries were then identified, skeletonized, and ligated bilaterally. The uterosacral ligaments and cardinal ligaments were transected bilaterally. The anterior colpotomy was then made using the Bovie L-hook and continued circumferentially inferior to the cervix using the colpotomy ring as a guide. The entire cervix and uterus was then successfully amputated and delivered through the vagina, along with bilateral fallopian tubes and ovaries. Excellent hemostasis was noted. The vaginal cuff was then closed laparoscopically with size 0 Stratafix suture in a running fashion. The needle was removed via the left lateral port under direct visualization. The cystoscope was then primed and advanced through the urethra and into the bladder. Both ureteral orifices were identified and bilateral efflux of urine was visualized. A survey of the bladder did not show defects or visible suture. The cystoscope was then removed and the Gr catheter was replaced to drain the bladder. Attention was then returned to the abdomen, where the pelvis was inspected and excellent hemostasis was noted. The pneumoperitoneum was then released, and the remaining ports were removed. The skin incisions were then reapproximated using 4-0 monocryl suture in a subcuticular fashion and covered with Dermabond. At the completion of the case the sponge and needle counts were correct x 2. The patient was taken to the PACU in stable condition. Complications: none Post-operative Condition: stable Disposition: PACU Plan for aftercare: Plan for discharge home in the morning.
[2023-08-17] MEDS: OXYCODONE IR 5 MG TABLET PO (14:57)
[2023-08-17] MEDS: HYDROMORPHONE 1 MG INJ IV ×2 (14:58→15:07)
--- NOTE | 2023-08-17 16:13 | PC.NURSE ---
Patient admitted to floor around 1550. She had a lap hysterectomy with a bilateral salpingoopherectomy. Patient has a koki pad in place with no bleeding. She has 4 lap sites to lower abdomen with durmobond. She denies pain at this time. BS cta, RA. Visiting with her now.
[2023-08-17] MEDS: ACETAMINOPHEN 325 MG TABLET 650 MG PO ×2 (16:49→21:28)
[2023-08-17] MEDS: KETOROLAC 30 MG/ML VIAL IV ×2 (16:50→21:28)
[2023-08-17] MEDS: DOCUSATE 100 MG CAPSULE 200 MG PO (21:28)
[2023-08-18 00:31] VITALS: BP 98/52; PULSE 87; RESP 18; TEMP 37.1; O2SAT 96
[2023-08-18] MEDS: KETOROLAC 30 MG/ML VIAL IV ×2 (03:35→08:49)
[2023-08-18] MEDS: ACETAMINOPHEN 325 MG TABLET 650 MG PO ×2 (03:35→08:51)
[2023-08-18 03:42] VITALS: BP 119/62; PULSE 89; RESP 18; TEMP 36.9; O2SAT 96
[2023-08-18] MEDS: LEVOTHYROXINE 88 MCG TABLET PO (06:35)
--- NOTE | 2023-08-18 08:06 | P.DS_ITS ---
History of Present Illness History of Present Illness Date Patient Seen: 08/18/23 Time Patient Seen: 08:07 Chief complaint: Laparoscopic Total Hysterectomy Discharge Providers Provider Discharge Date: 08/17/23 Primary care physician: Janice Ahmadi DO Discharge provider: Daja Daniel DO Summary Hospital Course Discharge Diagnosis: Benign endometrial hyperplasia S/p total laparoscopic hysterectomy with bilateral salpingo-oophorectomy Hospital Course: 68-year-old female admitted for planned laparoscopic hysterectomy with BSO due to benign endometrial hyperplasia. Her procedure was uncomplicated. By postop day #1, she was ambulating, tolerating regular diet, voiding spontaneously, with minimal vaginal bleeding. Her pain was well controlled with oral medications. Thus she was discharged to home on post-op day #1. Status at Discharge Cognitive/behavioral status at discharge: oriented Functional status at discharge: independent ambulation Overall status at discharge: patient is progressing back to baseline Time Spent with Patient Time spent: Less than 30 minutes Exam Vital Signs (past 8 hours): - 08/18/23 00:31 08/18/23 03:42 Temperature 98.7 F 98.5 F Pulse Rate 87 89 Respiratory Rate 18 18 Blood Pressure 98/52 L 119/62 Pulse Oximetry 96 96 Oxygen Flow Rate 0 0 Oxygen Delivery Method Room Air Oxygen Flow Rate 0 Const General: comfortable, well developed and No acute distress Resp Effort & Inspection: normal respiratory effort and able to speak in complete sentences GI Other: Soft, appropriately tender, nondistended Skin Other: 4 laparoscopic incisions clean/dry/intact with Dermabond in place Neuro General: patient alert, patient awake and patient oriented x3 Cognition: normal cognition Speech: speech normal Extrem General: normal to inspection and no calf tenderness Psych Mood: congruent mood Affect: normal affect Objective Labs 08/17/23 10:20 Labs: Laboratory Results - last 24 hr 08/17/23 10:20 WBC 5.5 RBC 4.70 Hgb 13.2 Hct 39.8 MCV 84.6 MCH 28.1 MCHC 33.2 RDW 13.6 Plt Count 201 Neut % (Auto) 61.5 Lymph % (Auto) 24.2 L [place] % (Auto) 11.3 Eos % (Auto) 2.4 Baso % (Auto) 0.6 Neut # (Auto) 3400 Lymph # (Auto) 1300 [place] # (Auto) 600 Eos # (Auto) 100 Baso # (Auto) 0 Blood Type O Positive Antibody Screen Negative [facility] Medical History (Updated 07/16/23 @ 10:08 by Daja Daniel DO) Endometrial hyperplasia without atypia History of COVID-19 (~05/18/23) Hyperlipidemia Osteopenia Family history of colon cancer Hormone replacement therapy (HRT) Family history of malignant neoplasm of endometrium Postmenopausal bleeding (~03/2023) Squamous cell carcinoma Basal cell carcinoma Infertility Thyroid nodule Hypothyroidism Skin cancer Acquired hypothyroidism (09/03/15) Surgical History (Updated 08/13/23 @ 15:13 by Glenis Person RN) History of hysteroscopy (06/29/23) Anesthesia Status post colonoscopy Family History Father No problems noted. Grandfather No problems noted. Grandmother No problems noted. Mother No problems noted. Grandfather No problems noted. Grandmother No problems noted. Sister No problems noted. Sister Leukemia Family/Other No problems noted. Social History marital status: number of children: 1 household members: spouse lives independently: Yes housing: house pets and animals: Yes education level: master's degree occupational status: employed Smoking Status: Never smoker alcohol intake: current substance use type: does not use Discharge Assessment & Plan Assessment and Plan Assessment: Benign endometrial hyperplasia Plan of Treatment: s/p total laparoscopic hysterectomy with bilateral salpingo-oophrectomy -discharge home with f/u in clinic Discharge Plan Discharge Plan Patient Disposition: Home Provider Discharge Comment: Take ibuprofen 600 mg every 6 hours and acetaminophen 650 mg every 6 hours as needed for pain. May use oxycodone every 4 hours as needed for severe pain. Avoid placing anything in the vagina for 6 weeks. Avoid lifting over 20 lb for least 4 weeks. Discharge orders & Medications Discharge Orders: Discharge (Order); Ordered 08/18/23 Ordered By: Daja Daniel Prescriptions: New oxycodone 5 mg Tablet 5 mg PO Q4HR PRN (Reason: Pain, Moderate (4-6)) Qty: 7 0RF Continued cholecalciferol (vitamin D3) 2,000 unit capsule 2,000 unit PO DAILY levothyroxine 88 mcg tablet 88 mcg PO DAILY Qty: 90 0RF escitalopram oxalate 5 mg tablet 5 mg PO DAILY Qty: 90 0RF rosuvastatin 5 mg tablet 5 mg PO .Every Other Day Follow up/Referrals: Daja Daniel DO [Physician] - (follow-up at 2 weeks for telehealth, and 6 weeks in person) Diet/Activity/Treatments Diet: Diet as Tolerated Activity: As tolerated Skin/Wound/Dressing Care Report to your healthcare provider any signs of infection, such as:: chills, fever, increased pain, unusual drainage and unusual redness Dressing: You may shower normally. The surgical glue should peel off after 1 week. Visit Report/Discharge Packet Instructions: DI for Hysterectomy, DI for Laparoscopy Stand Alone Forms: Patient Portal/API Discharge Data Primary Care Provider: Janice Ahmadi Attending Provider: Daja Daniel Quality VTE Deep Vein Thrombosis/Pulmonary Embolism Present on Admission: No
--- NOTE | 2023-08-18 08:22 | CM.DANOTE ---
Initial DCP Assessment Visit Note Reviewed EMR and team rounds for pt's medical status and updates. Met with pt at bedside to introduce self and role. Pt found to be awake, conversive, expressing feeling comfortable and ready for her to come pick her up to d/c home today. Payor: Medicare Attending: Daja Daniel Pt is a 68 year-old F placed in OPB following her lap hysterectomy w/bilateral salpengooherectomy surgery yesterday. Pt has a hx of endometrial hyperplasia. Her surgery went well, no post-op resource/support needs are identified for DCP at this time. Will continue to monitor until she discharges later this morning. Discharge Planning/Care Management CM Discharge Assessment Start: 08/18/23 08:20 Freq: Status: Active Protocol: Document 08/18/23 08:20 DPL (Rec: 08/18/23 08:22 DPL [id number]) Discharge Planning Assessment Assigned Pastry Finisher MARK ANTHONY Tucker Advance Directives? No Advance Directives on File No History Provided By Patient,Medical Record Has Patient been admitted in last 30 No days? Prior Living Arrangements House Household Members spouse Type of transporation used prior to Drives own vehicle admit Independent with ADL's Yes Is patient alert and oriented? Yes Comment N/A Caregiver for Another No Comment OP f/u with surgeon. No other needs identified at this time. Barriers to Discharge No Referrals Initiated None needed Whiteboard Updated in Patient Room with Yes name and ext. # of Pastry Finisher Review Status In Process Please Provide Date Initial DC 08/18/23 Assessment Was Performed Pre-Anesthesia Assessment Start: 08/13/23 15:10 Freq: Status: Active Protocol: Document 08/13/23 15:10 CAB (Rec: 08/13/23 15:14 CAB [id number]) Pre-Anesthesia Assessment Preferred Name Gisele Patient Information Reviewed Via Chart Review Primary Care Provider Janice Ahmadi Seen Specialist in Last 12 Months Yes Specialist Seen Permit Specialist Primary Language Hebrew Preferred Language Hebrew Rn Orthopedic Required No Height 165.1 cm Weight 63.957 kg Body Mass Index (BMI) 23.4 Barriers to Learning None Hx Anesthesia Reactions No Hx Family Anesthesia Reaction No Hx Malignant Hyperthermia No Hx Blood Transfusion Reaction No Anesthesia Review Requested No Recycling Tech No alcohol intake current alcohol intake frequency a few times a week Smoking Status Never smoker Substance Use Type does not use Patient is completely paralyzed or No completely immobile Mental Status Oriented to own ability Is patient on oxygen? No Hx Sleep Apnea No CPAP/BIPAP use not prescribed Currently Taking a Beta Phuc No Cardiac Testing No Hx Pacemaker/ICD No Pacemaker Rep Required? No Cardiac Clearance Received Not Applicable Urinary Catheter Present No Hx Urinary Self Catheterization No Diabetes No Patient No Lactating No Presence of External or Internal Medical No Devices Received a COVID vaccine? Yes Marital Status Lives With spouse Patient Discharge Plan Description Return Home Advance Directives? No
[2023-08-18] MEDS: DOCUSATE 100 MG CAPSULE 200 MG PO (08:49)
[2023-08-18 09:23] VITALS: BP 122/73; PULSE 78; RESP 16; TEMP 36.9; O2SAT 98
--- NOTE | 2023-08-18 10:07 | PC.NURSE ---
Pt is dressed and ready for discharge home with Spouse. IV has been removed. Went over d/c instructions-discussed d/c meds, time of last dose, reviewed stroke education, s/s of infection, showering, minimal lifting, no driving while taking narcotics, drinking plenty of fluids to prevent constipation or dehydration and follow up appointment. Pt denied further questions and will be ready to take out via w/c by SITECORE DEVELOPER to pov with spouse and all belongings.
== END 2023-08-18 10:38 | disposition home or self-care (01) ==
LOC: OR 09:44 → AC 09:45
PROVIDERS: PCP Family Medicine; Referring Provider Student in an Organized Health Care Education/Training Program; Visit Provider Student in an Organized Health Care Education/Training Program
PROC: 0UT94ZZ Resection of Uterus, Percutaneous Endoscopic Approach (ICD-10-PCS; CPT 58571; principal; 2023-08-17 11:45)
DX: N85.02 Endometrial intraepithelial neoplasia [EIN] (principal); N72 Inflammatory disease of cervix uteri; N83.8 Other noninflammatory disorders of ovary, fallopian tube and broad ligament; N83.299 Other ovarian cyst, unspecified side
CPT/HCPCS: 58571; 36415; 85025; 86850; 86900; 86901; J0171; J0690; J1100; J1170; J1885; J2405; J3010; J3490

== ENCOUNTER → 2023-12-14 08:08 | Outpatient (CLI) | payer MEDICARE, OTHER, SELFPAY ==
[2023-08-17 09:59] VITALS: BMI 24.1
--- NOTE | 2023-12-14 08:10 | DI.MG.S_ITS ---
BILATERAL DIGITAL SCREENING MAMMOGRAM 3D/2D WITH CAD: 12/14/2023 CLINICAL: Routine screening. Comparison is made to exams dated: 12/11/2022 mammogram, 12/10/2021 mammogram, 12/05/2020 mammogram, 11/23/2019 mammogram, 11/07/2019 mammogram, and 08/21/2018 mammogram - [facility]. Both breasts are heterogeneously dense, which may obscure small masses (category c / 51-75% glandular tissue). Current study was also evaluated with a Computer Aided Detection (CAD) system. There is a possible developing oval equal density asymmetry with a microlobulated margin in the right breast middle depth central to the nipple seen on the craniocaudal view only. No other significant masses, calcifications, or other findings are seen in either breast. IMPRESSION: INCOMPLETE: NEEDS ADDITIONAL IMAGING EVALUATION The possible developing oval equal density asymmetry in the right breast is indeterminate. Additional views with possible ultrasound are recommended. Based on the Tyrer Cuzick model (a risk assessment model) the patient's lifetime risk is 10.3% and her 10 year risk is 5.2%. According to the ACR, ACS, and NCCN guidelines, an annual breast MRI exam along with mammogram is recommended if the patient's lifetime risk is 20% or greater. This exam was interpreted at Station ID: [id number]. NOTE: For mammograms, a report in lay terms will be sent to the patient. Approximately 15% of breast malignancies will not be visualized mammographically. In the management of a palpable breast mass, a negative mammogram must not discourage biopsy of a clinically suspicious lesion. Electronically Signed By: Adrienne garcia/zackary:12/14/2023 11:55:25 letter sent: Additional Imaging Needed ACR BI-RADS Category 0: Incomplete 3340F
== END ==
LOC: MAMMO 08:09
PROVIDERS: PCP Family Medicine; Referring Provider Family Medicine; Visit Provider Family Medicine
DX: Z12.31 Encounter for screening mammogram for malignant neoplasm of breast (principal); R92.333 Mammographic heterogeneous density, bilateral breasts
CPT/HCPCS: 77063; 77067

== ENCOUNTER → 2023-12-24 09:30 | Outpatient (CLI) | payer MEDICARE, OTHER, SELFPAY ==
[2023-08-17 09:59] VITALS: BMI 24.1
--- NOTE | 2023-12-24 09:31 | DI.MG.S_ITS ---
UNILATERAL RIGHT DIGITAL DIAGNOSTIC MAMMOGRAM 3D/2D WITH ADDITIONAL VIEWS: 12/24/2023 CLINICAL: Additional evaluation requested from prior study. Comparison is made to exams dated: 12/14/2023 mammogram, 12/11/2022 mammogram, and 12/10/2021 mammogram - [facility]. The right breast is heterogeneously dense, which may obscure small masses (category c / 51-75% glandular tissue). There is an asymmetry in the right breast middle depth central to the nipple seen on the craniocaudal view only. This is not seen in additional views, likely summation artifact. No other significant masses or calcifications are seen in the breast. IMPRESSION: NEGATIVE There is no mammographic evidence of malignancy. Return to annual mammogram screening schedule is recommended. Based on the Tyrer Cuzick model (a risk assessment model) the patient's lifetime risk is 10.3% and her 10 year risk is 5.2%. According to the ACR, ACS, and NCCN guidelines, an annual breast MRI exam along with mammogram is recommended if the patient's lifetime risk is 20% or greater. This exam was interpreted at Station ID: [id number]. NOTE: For mammograms, a report in lay terms will be sent to the patient. Approximately 15% of breast malignancies will not be visualized mammographically. In the management of a palpable breast mass, a negative mammogram must not discourage biopsy of a clinically suspicious lesion. Electronically Signed By: Ben Murphy M.D. lc/:12/24/2023 09:56:24 letter sent: Normal Exam ACR BI-RADS Category 1: Negative 3341F
== END ==
PROVIDERS: PCP Family Medicine; Referring Provider Family Medicine; Visit Provider Family Medicine
DX: R92.8 Other abnormal and inconclusive findings on diagnostic imaging of breast (principal); R92.331 Mammographic heterogeneous density, right breast
CPT/HCPCS: 77065; G0279

== ENCOUNTER → 2024-03-24 07:08 | Outpatient (CLI) | payer MEDICARE, OTHER, SELFPAY ==
[2023-08-17 09:59] VITALS: BMI 24.1
[2024-03-24 08:47] LABS: Alanine Aminotransferase 24 IU/L (<35); Albumin 4.1 g/dL (3.5-5.0); Albumin Globulin Ratio 1.7 (1.0-2.8); Alkaline Phosphatase 66 U/L (38-126); Aspartate Aminotransferase 27 IU/L (14-36); BUN Creatinine Ratio 22.1 (6-22); Bilirubin Total 0.5 mg/dL (0.2-1.3); Blood Urea Nitrogen 17 mg/dL (7-17); Calcium 9.2 mg/dL (8.4-10.2); Carbon Dioxide 24 mmol/L (22-32); Chloride 107 mmol/L (98-107); Cholesterol 150 mg/dL (140-199); Estimated Glomerular Filt Rate > 60 mL/min (>60); Globulin 2.4 g/dL (1.7-4.1); Glucose 99 mg/dL (80-110); HDL Cholesterol 63 mg/dL (40-60); HEMOLYSIS < 15 (0-50); LDL Cholesterol Calculated 73 mg/dL (<100); Potassium 4.3 mmol/L (3.4-5.1); Sodium 139 mmol/L (137-145); Total Protein 6.5 g/dL (6.3-8.2); Triglycerides 71 mg/dL (35-150)
[2024-03-24 08:53] LABS: High Sensitivity CRP - Cardiac 4.1 mg/L (1.0-3.0)
== END ==
LOC: LAB 07:10
PROVIDERS: PCP Family Medicine; Referring Provider Family Medicine; Visit Provider Family Medicine
DX: E03.9 Hypothyroidism, unspecified (principal); M85.80 Other specified disorders of bone density and structure, unspecified site; N95.2 Postmenopausal atrophic vaginitis; E78.5 Hyperlipidemia, unspecified; F41.9 Anxiety disorder, unspecified
CPT/HCPCS: 36415; 80053; 80061; 82523; 82570; 82627; 82670; 83001; 84443; 86140

== ENCOUNTER → 2024-03-24 12:41 | Outpatient (CLI) | payer MEDICARE, OTHER, SELFPAY ==
[2023-08-17 09:59] VITALS: BMI 24.1
--- NOTE | 2024-03-24 12:42 | DI.RAD.S_ITS ---
PROCEDURE: XR DEXA AXIAL SKELETON INDICATIONS: bone density screening COMPARISON: None. FINDINGS: Lumbar Spine: Bone mineral density is 0.769 g/cm2, T score -2.3, osteopenia. Left Hip: Bone mineral density 0.679 g/cm2, T score -2.2, osteopenia. Left Femoral Neck: Bone mineral density is 0.597 g/cm2, T score -2.3, osteopenia. Right Hip: Bone mineral density 0.691 g/cm2, T score -2.1, osteopenia. Right Femoral Neck: Bone mineral density 0.563 g/cm2, T score -2.6, osteoporosis. (T score greater or equal to -1.0 to: NORMAL) (T score from -1.1 to -2.4: OSTEOPENIA) (T score less than or equal to -2.5: OSTEOPOROSIS) IMPRESSION: Osteoporosis Follow-up guidelines as follows: Osteoporosis: Consider a repeat DEXA and Vertebral Fracture Assessment (VFA) exam in 2 years or sooner if medically necessary, to reassess this patient's status. Osteopenia: Consider a repeat DEXA in 2-3 years to reassess this patient's status, or if there is a new clinical indication. Normal: Consider a repeat DEXA in 5 years or sooner, or if there is a new clinical indication. All treatment decisions require clinical judgment and consideration of individual patient factors, including patient preferences, comorbidities, previous drug use, risk factors not captured in the FRAX model (e.g., frailty, falls, vitamin D deficiency, increased bone turnover, interval significant decline in bone density ) and possible under- or over-estimation of fracture risk by FRAX. In addition, the NOF Guide recommends that FDA-approved medical therapies be considered in postmenopausal women and men age >= 50 years with a: * Hip or vertebral (clinical or morphometric) fracture * T-score of <=-2.5 at the spine or hip * Ten-year fracture probability by FRAX of >= 3% for hip fracture or >=20% for major osteoporotic fracture. People with diagnosed cases of osteoporosis or at high risk for fracture should have regular bone mineral density tests. For patients eligible for Medicare, routine testing is allowed once every 2 years. The testing frequency can be increased to one year for patients who have rapidly progressing disease, those who are receiving or discontinuing medical therapy to restore bone mass, or have additional risk factors. Approved by: Mick Rosa M.D. on 03/24/2024 at 16:48
== END ==
PROVIDERS: PCP Family Medicine; Referring Provider Family Medicine; Visit Provider Family Medicine
DX: M81.0 Age-related osteoporosis without current pathological fracture (principal); N95.2 Postmenopausal atrophic vaginitis; E03.9 Hypothyroidism, unspecified; E78.5 Hyperlipidemia, unspecified; F41.9 Anxiety disorder, unspecified
CPT/HCPCS: 36415; 77080; 80053; 80061; 82523; 82570; 82627; 82670; 83001; 84443; 86140

== ENCOUNTER → 2024-06-23 07:04 | Outpatient (CLI) | payer MEDICARE, OTHER, SELFPAY ==
[2023-08-17 09:59] VITALS: BMI 24.1
[2024-06-23 08:56] LABS: Cholesterol 200 mg/dL (140-199); HDL Cholesterol 49 mg/dL (40-60); LDL Cholesterol Calculated 134 mg/dL (<100); Triglycerides 87 mg/dL (35-150)
[2024-06-23 09:23] LABS: TSH w/ Reflex to FT4 1.72 uIU/mL (0.47-4.68)
== END ==
LOC: LAB 07:06
PROVIDERS: PCP Family Medicine; Referring Provider Family Medicine; Visit Provider Family Medicine
DX: E78.00 Pure hypercholesterolemia, unspecified (principal); Z79.890 Hormone replacement therapy; D72.818 Other decreased white blood cell count; E03.9 Hypothyroidism, unspecified
CPT/HCPCS: 36415; 80061; 82523; 82670; 84443

== ENCOUNTER → 2025-03-21 06:54 | Outpatient (CLI) | payer MEDICARE, OTHER, SELFPAY ==
[2023-08-17 09:59] VITALS: BMI 24.1
[2025-03-21 07:31] LABS: Hematocrit 39.8 % (36-46); Hemoglobin 13.2 g/dL (12.0-16.0); Mean Corpuscular HGB Conc 33.2 % (30-36); Mean Corpuscular Hemoglobin 28.3 PG (26-34); Mean Corpuscular Volume 85.3 fL (80-100); Platelet Count 221 X10^3/uL (150-400)
[2025-03-21 07:53] LABS: Alanine Aminotransferase 16 IU/L (<35); Albumin 4.0 g/dL (3.5-5.0); Albumin Globulin Ratio 1.5 (1.0-2.8); Alkaline Phosphatase 61 U/L (38-126); Blood Urea Nitrogen 17 mg/dL (7-17); Calcium 9.2 mg/dL (8.4-10.2); Carbon Dioxide 27 mmol/L (22-32); Chloride 104 mmol/L (98-107); Cholesterol 231 mg/dL (140-199); Estimated Glomerular Filt Rate > 60 mL/min (>60); Globulin 2.7 g/dL (1.7-4.1); Glucose 101 mg/dL (70-99); HDL Cholesterol 66 mg/dL (40-60); HEMOLYSIS < 15 (0-50); Potassium 4.3 mmol/L (3.4-5.1); Sodium 137 mmol/L (137-145); Total Protein 6.7 g/dL (6.3-8.2); Triglycerides 98 mg/dL (35-150)
[2025-03-21 08:23] LABS: TSH w/ Reflex to FT4 2.87 uIU/mL (0.47-4.68)
[2025-03-22 04:08] LABS: CRP, High Sensitivity 2.64 mg/L (0.00-3.00)
[2025-03-29 10:09] LABS: Estradiol, Sensitive 25.9 pg/mL (.)
== END ==
PROVIDERS: PCP Family Medicine; Referring Provider Family Medicine; Visit Provider Family Medicine
DX: E78.5 Hyperlipidemia, unspecified (principal); M85.80 Other specified disorders of bone density and structure, unspecified site; E03.9 Hypothyroidism, unspecified; Z79.890 Hormone replacement therapy
CPT/HCPCS: 36415; 80053; 80061; 82523; 82670; 84443; 85027; 86140